=== PATIENT | female | born 1985 | race Two or more races ===

== ENCOUNTER 2024-08-02 18:10 | Emergency (ER) | payer SELFPAY ==
[~2024-08-02] VITALS: Ht 157.5 cm; Wt 67.6 kg
[2024-08-02 19:37] VITALS: BP 138/91; PULSE 89; RESP 20; TEMP 98.6; O2SAT 100
[2024-08-02] MEDS ORDERED: ACET500T58 PO (20:51)
--- NOTE | 2024-08-02 20:51 | ED.PDOC ---
Eye-HPI HPI Comments 38-YEAR-OLD FEMALE PRESENTS TO ER WITH COMPLAINTS OF JAW PAIN X2 DAYS. PATIENT REPORTS THAT SHE STARTED EXPERIENCING LEFT-SIDED JAW PAIN WITH ASSOCIATED LEFT- SIDED HEADACHE TWO DAYS AGO. SHE RATES HER CURRENT PAIN A 9/10. DENIES ANY TRAUMA/INJURY OR ANY KNOWN HISTORY OF GRINDING HER TEETH. STATES THAT HER JAW PAIN IS PRESENT WITH MOVEMENT/PALPATION ONLY, DENYING ANY PAIN AT REST. PATIENT PRESENTS TO ER AMBULATORY ON ARRIVAL, ALERT AND ORIENTED X4, WITH STEADY GAIT, IN NO DISTRESS. DENIES FEVER, SKIN CHANGES, DENTAL PAIN, EARACHE OR ANY FURTHER SYMPTOMS/COMPLAINTS Chief Complaint: Earache Time Seen by MD: 18:45 Primary Care Provider: UNKNOWN Reviewed Notes: Nurses Notes, Medications, Allergies Allergies: Coded Allergies: NO KNOWN ALLERGIES (Unverified , 08/02/24) Home Meds Active Scripts Acetaminophen (Acetaminophen) 500 Mg Tab, 500 MG PO Q4HPRN, #30 TAB 0 Refills Prov:ROZINAHARI REYNOLDS 08/02/24 Information Source: Patient Mode of Arrival: Ambulatory Past Medical History PAST MEDICAL HISTORY: Denies Surgical History: , Tubal Ligation Family History Family History: Unknown Social History Smoker: Non-Smoker Alcohol: Denies ETOH Use Drugs: Denies Drug Use Lives In: Home Constitutional: denies: chills, diaphoresis, fatigue, fever, malaise, sweats, weakness, others EENTM: reports: others (As stated in HPI) Respiratory: denies: cough, hemoptysis, orthopnea, SOB at rest, shortness of breath, SOB with excertion, stridor, wheezing, others Cardiovascular: denies: chest pain, dizzy spells, diaphoresis, Dyspnea on exertion, edema, irregular heart beat, left arm pain, lightheadedness, palpitations, PND, syncope, others Gastrointestinal: denies: abdomen distended, abdominal pain, blood streaked bowels, constipated, diarrhea, dysphagia, difficulty swallowing, hematemesis, melena, nausea, poor appetite, poor fluid intake, rectal bleeding, rectal pain, vomiting, others Genitourinary: denies: abnormal vagina bleeding, burning, dyspareunia, dysuria, flank pain, frequency, hematuria, incontinence, pain, , vagina discharge, urgency, others Neurological: denies: dizziness, fainting, headache, left sided numbness, left sided weakness, numbness, paresthesia, pre-existing deficit, right sided numbness, right sided weakness, seizure, speech problems, tingling, tremors, weakness, others Musculoskeletal: denies: back pain, gout, joint pain, joint swelling, muscle pain, muscle stiffness, neck pain, others Integumetry: denies: bruises, change in color, change in hair/nails, dryness, laceration, lesions, lumps, rash, wounds, others Allergic/Immunocompromised: denies: Difficulty Healing, Frequent Infections, H cynthia, Itching, others Hematologic/Lymphatic: denies: anemia, blood clots, easy bleeding, easy bruising, swollen glands, others Endocrine: denies: excessive hunger, excessive sweating, excessive thirst, excessive urination, flushing, intolerance to cold, intolerance to heat, unexplained weight gain, unexplained weight loss, others Psychiatric: denies: anxiety, bipolar disorder, depression, hopeless, panic disorder, schizophrenia, sleepless, suicidal, others Physical Exam General Appearance: No Apparent Distress HEENT: PERRL/EOMI, Pharynx Normal, TMs Normal, Other (TTP to left TMJ noted without swelling/skin changes appreciated, patient able to fully open/close mouth without difficulty. No broken teeth/signs of dental infection appreciated) Neck: Full Range of Motion, Non-Tender, Normal Respiratory: Chest Non-Tender, Lungs Clear, No Accessory Muscle Use, No Respiratory Distress, Normal Breath Sounds Cardiovascular: No Murmur, No Gallop, Regular Rate/Rhythm Breast Exam: Deferred Gastrointestinal: NOT DONE Genitalia: Deferred Pelvic: Deferred Rectal: Deferred Extremities: Normal capillary refill, Normal range of motion Neurologic: Alert, nurse researcher II-XII nml as Tested, No Motor Deficits, Normal Affect, Normal Mood, No Sensory Deficits Cerebellar Function: Normal Reflexes: Normal Skin: Dry, Normal Color, Warm Lymphatic: No Adenopathy Was a procedure done? Was a procedure done?: No Sedation Sedation?: No EENT DIFF Eye: N/A Other Differential Diagnosis Fracture, dislocation, dental infection, otitis media X-Ray, Labs, Meds, VS Vital Signs Date Time Temp Pulse Resp B/P (MAP) Pulse Ox O2 Delivery O2 Flow Rate FiO2 08/02/24 19:37 89 20 100 Room Air 0 08/02/24 19:37 98.6 89 20 138/91 (107) 100 98.6 08/02/24 18:35 97.9 75 18 125/78 (94) 97 97.9 Patient in no distress during ER visit/prior to discharge Advised to follow up with PCP and dentist in 1-2 days Patient verbalized understanding and agreeable with current plan of care Advised to return to ER immediately if symptoms worsen Time of 1ST Reevaluation: 20:24 Reevaluation 1ST: N/A Patient Education/Counseling: Diagnosis, Treatment, Prognosis, Need For Follow Up Family Education/Counseling: No Family Present Departure 1 Departure Time of Disposition: 20:50 Impression: Primary Impression: TMJ (temporomandibular joint disorder) Disposition: 01 HOME / SELF CARE / HOMELESS Condition: Stable e-Prescriptions Acetaminophen (Acetaminophen) 500 Mg Tab 500 MG PO Q4HPRN, #30 TAB 0 Refills Prov: HARI HANDY 08/02/24 Discharged With: Self Critical Care Note Critical Care Time?: No Stability Stability form required: No Heart Score Heart Score: Heart Score Response (Comments) Value History N/A 0 EKG N/A 0 Age N/A 0 Risk Factors N/A 0 Troponin N/A 0 Total 0 HARI HANDY Aug 02, 2024 20:51
== END 2024-08-02 20:58 | disposition home or self-care (01) ==
LOC: ER 18:16
DX: M26.602 Left temporomandibular joint disorder, unspecified (principal); Z79.899 Other long term (current) drug therapy; Z98.51 Tubal ligation status; Z98.890 Other specified postprocedural states